=== PATIENT | female | born 1950 | race African-American/Black ===

== ENCOUNTER 2016-05-14 09:57 | Outpatient (CLI) | payer OTHER, BC | END 2016-05-14 18:48 | disposition home or self-care (01) | LOC: SMA 09:57 | PROVIDERS: ATTEND Physician Assistant Medical | DX: Z12.31 Encounter for screening mammogram for malignant neoplasm of breast (principal) | CPT/HCPCS: 77067; G0202 ==

== ENCOUNTER 2018-04-04 10:34 | Outpatient (CLI) | payer OTHER, BC | END 2018-04-04 19:53 | disposition home or self-care (01) | LOC: SMA 10:34 | PROVIDERS: ATTEND Physician Assistant Medical | DX: Z12.31 Encounter for screening mammogram for malignant neoplasm of breast (principal) | CPT/HCPCS: 77067 ==

== ENCOUNTER 2019-04-09 10:32 | Outpatient (CLI) | payer BC | END 2019-04-09 21:22 | disposition home or self-care (01) | LOC: SMA 10:32 | PROVIDERS: ATTEND Physician Assistant Medical | DX: Z12.31 Encounter for screening mammogram for malignant neoplasm of breast (principal); N64.89 Other specified disorders of breast | CPT/HCPCS: 77067 ==

== ENCOUNTER 2020-04-14 09:00 | Outpatient (CLI) | payer BC | END 2020-04-14 20:47 | disposition home or self-care (01) | LOC: SMA 09:00 | PROVIDERS: ATTEND Family Medicine | DX: Z12.31 Encounter for screening mammogram for malignant neoplasm of breast (principal) | CPT/HCPCS: 77067 ==

== ENCOUNTER 2021-04-17 09:36 | Outpatient (CLI) | payer BC | END 2021-04-17 20:12 | disposition home or self-care (01) | LOC: SMA 09:36 | PROVIDERS: ATTEND Family Medicine | DX: Z12.31 Encounter for screening mammogram for malignant neoplasm of breast (principal) | CPT/HCPCS: 77067 ==